=== PATIENT | male | born 1975 | race Caucasian/White ===

== ENCOUNTER 2020-06-05 11:44 | Emergency (ER) | payer OTHER ==
[~2020-06-05] VITALS: Ht 185.4 cm; Wt 162.3 kg
[2020-06-05 11:50] VITALS: BP 156/94
[2020-06-05] MEDS ORDERED: LIDOCAINE 1% PF 30 ML VIAL. INJ ONE (12:00)
[2020-06-05] MEDS ORDERED: DIPH,PERTUSS(ACELL),TET VAC/PF 0.5 ML SYRINGE. VAX IM ONE (12:00)
[2020-06-05] MEDS ORDERED: CEPH-264 PO (12:24)
--- NOTE | 2020-06-05 12:27 | PHYS DOC ---
General Adult EDM: Chief Complaint: LACERATION/AVULSION HPI: HPI: 44-year-old male past medical history significant for hyperlipidemia and obesity, takes no routine medications (had lost weight and cholesterol medication was discontinued), presents to the ED from work after he sustained a cut to his right third digit, reports there was a piece of metal in the back of a computer that he ran his finger against. Cannot recall last tetanus. Is right-hand dominant. No prior history of MRSA or immunocompromised state. Denies any restricted range of motion but states the computer was martha. Review of Systems: Review of Systems: Constitutional: Denies fever or chills Eyes: Denies change in visual acuity HENT: Denies nasal congestion or sore throat Respiratory: Denies cough or shortness of breath Cardiovascular: Denies chest pain or edema GI: Denies abdominal pain, nausea, vomiting, bloody stools or diarrhea : Denies dysuria Musculoskeletal: Denies back pain or joint pain Integument: Denies rash Neurologic: Denies headache, focal weakness or sensory changes Endocrine: Denies polyuria or polydipsia Lymphatic: Denies swollen glands Psychiatric: Denies depression or anxiety Heart Score: Risk Factors: Risk Factors: DM, Current or recent (<one month) smoker, HTN, HLP, family history of CAD, obesity. Risk Scores: Score 0 - 3: 2.5% MACE over next 6 weeks - Discharge Home Score 4 - 6: 20.3% MACE over next 6 weeks - Admit for Clinical Observation Score 7 - 10: 72.7% MACE over next 6 weeks - Early Invasive Strategies Current Medications: Current Meds: Current Medications Medications (Trade) Dose Ordered Sig/Obbby Start Time Stop Time Status Last Admin Dose Admin Diphtheria/ Pertussis/Tetanus Vacc (ADACEL TDap SYRINGE) 0.5 ml ONCE ONCE 06/05/20 12:00 06/05/20 12:01 DC 06/05/20 12:11 0.5 ML Lidocaine HCl (Lidocaine 1% Pf) 20 ml 1X ONCE 06/05/20 12:00 06/05/20 12:01 DC 06/05/20 12:09 20 ML Allergies: Allergies: Allergies Coded Allergies Type Severity Reaction Last Updated Verified No Known Drug Allergies 06/05/20 No Physical Exam: PE: Constitutional: Well developed, well nourished, no acute distress, non-toxic appearance. [] HENT: Normocephalic, atraumatic, Eyes: EOMI, conjunctiva normal, Neck: Normal range of motion, supple, Cardiovascular: S1 and S2 present Lungs & Thorax: Speaking in full sentences, bilateral equal chest rise Skin: Warm, dry, Back: No tenderness, Extremities: no cyanosis, no clubbing, ROM intact, +right third digit/ventral aspect 0.5 cm laceration with subcutaneous fat exposed just distal to PIP crease, normal finger flexion/extension, no pain at the right wrist or elbow Neurologic: Alert and oriented X 3, normal motor function, normal sensory function, no focal deficits noted. [] Psychologic: Affect normal, judgement normal, mood normal. [] EKG: EKG: [] Radiology/Procedures: Radiology/Procedures: Indication: +right third digit/ventral aspect 0.5 cm laceration with subcutaneous fat exposed just distal to PIP crease Procedure: The patient was placed in the appropriate position and anesthesia around the laceration with 1% lidocaine. The area was then cleansed with copious normal saline. The laceration was closed with 4-0 nylon, total of 2 sutures. The wound area was then dressed with triple antibiotic ointment and sterile dressings. Total repaired wound length: 0.5 cm. Other Items: None The patient tolerated the procedure . Complications: None.[] Course & Med Decision Making: Course & Med Decision Making Pertinent Labs and Imaging studies reviewed. (See chart for details) Concern for accidental right finger laceration, no suspected tendon involvement given range of motion performed before and after laceration repair with no impairment with flexion or extension. Wound care instructions given with suture removal in 7 to 10 days. Will prescribe Keflex. Strict ED return precautions were given for neurologic deficits, severe pain or infection. Encouraged urgent outpatient follow-up with PMD-suture removal in 7 to 10 days. Life-threatening processes were considered but are low suspicion at this time, given history and physical exam. Pt was educated on all prescription medications and adverse effects. All patient's questions were answered and pt was stable at time of discharge. Life/limb-threatening differential includes but is not limited to, fracture, dislocation, laceration, osteomyelitis, compartment syndrome, neurovascular injury or deficit, infection (abscess, cellulitis, septic arthritis), head/neck trauma, tendon or ligament injury. I spoken with the patient and her caregivers. I explained the patient's condition, diagnoses and treatment plan based on the information available to me at this time. I have answered the patient and her caregiver's questions and addressed any concerns. The patient and her caregivers have a good understanding of patient's diagnosis, condition and treatment plan as can be expected at this point. Vital signs have been stable. Patient's condition is stable and appropriate for discharge from the emergency department. Patient will pursue further outpatient evaluation with primary care physician or other designated or consulting physician as outlined in the discharge instructions. The patient and/or caregivers are agreeable to this plan of care and follow-up instructions have been explained in detail. The patient and/or caregivers have received these instructions in written form and have expressed an understanding of the discharge instructions. The patient and/or caregivers are aware that any significant change of condition or worsening of symptoms should prompt immediate return to this or the closest emergency department or call to [phone]. Keith Disclaimer: Keith Disclaimer: This electronic medical record was generated, in whole or in part, using a voice recognition dictation system. Departure Departure: Impression: Primary Impression: Laceration of finger, right Additional Impression: Need for Tdap vaccination Disposition: 01 HOME/RESIDENCE PRIOR TO ADM Condition: STABLE Referrals: PCP,NO (PCP) FOLLOW UP WITH FAMILY MEDICINE: [facility], [facility] [address] [place] [address], Patient Instructions: Fingertip Laceration, Laceration Care, Adult, Sutured Wound Care Additional Instructions: SUTURE REMOVAL IN 7-10 DAYS EMERGENCY DEPARTMENT GENERAL DISCHARGE INSTRUCTIONS Thank you for coming to [facility] (ED) today and trusting us with you care. We trust that you had a positivie experience in our Emergency Department. If you wish to speak to the department management, you may call the director at [phone]. YOUR FOLLOW UP INSTRUCTIONS ARE FOLLOWS: 1. Do you have a private Doctor? If you do not have a private doctor, please ask for a resource list of physicians or clinics that may be able to assist you with follow up care. 2. The Emergency Physician has interpreted your x-rays. The X-Ray specialist will also review them. If there is a change in the findings, you will be notified in 48 hours when at all possible. 3. A lab test or culture has been done, your results will be reviewed and you will be notified if you need a change in treatment. ADDITIONAL INSTRUCTIONS AND INFORMATION: 1. Your care today has been supervised by a physician who is specially trained in emergency care. Many problems require more than one evaluation for a complete diagnosis and treatment. We recommend that you schedule your follow up appointment as recommended to ensure complete treatment of you illness or injury. If you are unable to obtain follow up care and continue to have a problem, or if your condition worsens, we recommend that you return to the ED. 2. We are not able to safely determine your condition over the phone nor are we able to give sound medical advice over the phone. For these safety reasons, if you call for medical advice we will ask you to come to the ED for further evaluation. 3. If you have any questions regarding these discharge instructions please call the ED at [phone]. SAFETY INFORMATION: In the interest of safety, wellness, and injury prevention; we encourage you to wear your sealbelt, if you smoke; quite smoking, and we encourage family to use a protective helmet for bicycling and other sporting events that present an increased risk for head injury. IF YOUR SYMPTOMS WORSEN OR NEW SYMPTOMS DEVELOP, OR YOU HAVE CONCERNS ABOUT YOUR CONDITION; OR IF YOUR CONDITION WORSENS WHILE YOU ARE WAITING FOR YOUR FOLLOW UP APPOINTMENT; EITHER CONTACT YOUR PRIMARY CARE DOCTOR, THE PHYSICIAN WHOSE NAME AND NUMBER YOU WERE GIVEN, OR RETURN TO THE ED IMMEDIATELY. Scripts Cephalexin (KEFLEX) 500 Mg Capsule 2 CAP PO BID for cellulitis for 7 Days, #28 CAP 0 Refills Prov: JES PIÑA DO 06/05/20 JES PIÑA DO Jun 05, 2020 12:27
[2020-06-05] MEDS ORDERED: NEOMY/BACITR/POLYMYXIN OINT PACKET. TP ONE (12:30)
== END 2020-06-05 12:30 | disposition home or self-care (01) ==
LOC: ER 11:44
DX: S61.212A Laceration without foreign body of right middle finger without damage to nail, initial encounter (principal); E78.5 Hyperlipidemia, unspecified; E66.9 Obesity, unspecified; Z68.42 Body mass index [BMI] 45.0-49.9, adult; W26.8XXA Contact with other sharp object(s), not elsewhere classified, initial encounter; Y93.89 Activity, other specified; Y92.89 Other specified places as the place of occurrence of the external cause; Y99.8 Other external cause status
CPT/HCPCS: 12001; 90471; 90715; 99283; J2001